=== PATIENT | female | born 1985 | race Caucasian/White ===

== ENCOUNTER 2020-08-09 22:59 | Emergency (ER) | payer MEDICAID, SELFPAY ==
[2020-08-09 23:00] VITALS: BP 137/102; PULSE 111; RESP 18; TEMP 36.3; O2SAT 100; BMI 23.1
--- NOTE | 2020-08-09 23:18 | ED.DCSUM_ITS ---
History of Present Illness <Elder Chau - Last Filed: 08/10/20 03:44> Informant: Patient Narrative: Patient is a 35-year-old female who presents to the emergency department for headache. This started 2 days ago. Has been progressively getting worse. Not worse at onset. She does have a history of migraines although this feels slightly different to her. She currently rates the pain as a 8 out of 10. She has been trying to take ibuprofen and Tylenol which have not been giving her significant relief. She has been feeling like she has had slightly blurred vision. Has been mildly nauseous. Has had some photophobia. Denies any head trauma. This is not the worst headache of her life. Denies any neck stiffness or fever/chills. No chest pain or shortness of breath. No weakness or loss of sensation in any extremity. She denies any chance of being . <Nathaniel Fisher - Last Filed: 08/10/20 12:38> Chief Complaint: Headache Past Medical History <Elder Chau - Last Filed: 08/10/20 03:44> Prior records reviewed: Yes Smoking Status: Current every day smoker <Nathaniel Fisher - Last Filed: 08/10/20 12:38> - Allergies and Home Meds Allergies/Adverse Reactions: Allergies metoclopramide [From Reglan] Allergy (Verified 08/09/20 23:05) NEEDS FOLLOW-UP C/O FEELING CRAZY paroxetine [From Paxil] Allergy (Verified 08/09/20 23:04) Hives Primary Care Physician: NOT,DEFINED [NON-STAFF] - 2 Days Review of Systems All systems negative except as indicated General: Denies: Chills, Fever, Sweats Eyes: Reports: Blurred Vision - bilaterally. Denies: Diplopia ENT: Denies: Rhinorrhea, Sore throat Cardiovascular: Denies: Chest pain, Palpitations Respiratory: Denies: Dyspnea, Cough, Dyspnea on exertion Gastrointestinal: Reports: Nausea. Denies: Abdominal pain, Vomiting Musculoskeletal: Denies: Back pain, Extremity Pain Skin: Denies: Rash, Wounds Neurological: Reports: Headache. Denies: Weakness, Numbness <Nathaniel Fisher - Last Filed: 08/10/20 12:38> Physical Exam Vital Signs/Narrative: Vital Signs Temp Pulse Resp BP Pulse Ox 08/10/20 02:04 89 16 136/92 H 99 08/10/20 00:37 92 16 121/86 H 100 08/09/20 23:00 97.3 F L 111 H 18 137/102 H 100 <Elder Chau - Last Filed: 08/10/20 03:44> Vital Signs/Narrative: Vital Signs Temp Pulse Resp BP Pulse Ox 08/09/20 23:00 97.3 F L 111 H 18 137/102 H 100 Inital Vital Signs reviewed: Yes General: Well nourished, Well developed, No Acute Distress Head: Normocephalic, Atraumatic Eyes: Perrl, EOMI ENT: Moist mucous membranes, No rhinorrhea Neck: Supple, Nontender Cardiovascular: Regular rate, Regular rhythm, No murmurs Respiratory: No distress, CTA bilaterally, Chest nontender Abdomen: Soft, Nontender, Nondistended, Normal bowel sounds Back: Nontender, Normal Inspection Extremities: Nontender, No edema Skin: Normal color, No rash Neurological: Alert, Oriented x3, Cranial nerves II-XII grossly intact, Normal Strength, Normal Sensation Psychological: Normal affect, Normal Mood <Nathaniel Fisher - Last Filed: 08/10/20 12:38> Diagnostic/Tx/Re-eval - Medical Decision Making Reevaluated this patient after Compazine was given and after less than half of the magnesium infusion has been administered. She says she is improved somewhat. She still has the headache, and is sleepy but easily arousable. She is neurologically intact. Will be discharged home after the medications unless her headache gets worse on reevaluation. <Elder Chau - Last Filed: 08/10/20 03:44> - Medical Decision Making Patient presents to the emergency department for headache. No red flag symptoms for subarachnoid hemorrhage. Upon arrival to the emerge department she does not appear in any acute distress. She is mildly hypertensive and mildly tachycardic upon arrival but on my physical exam heart rate was within normal limits. She h as no focal neurological deficits. Will treat with Toradol, Zofran and Benadryl as she does have adverse reaction to Reglan. Patient did not get good relief with the initial treatment so Compazine and magnesium are being added. Will sign out due to end of shift. We will plan on disposition home. Otherwise has been stable throughout ED stay. <Nathaniel Fisher - Last Filed: 08/10/20 12:38> ED Disposition <Elder Chau - Last Filed: 08/10/20 03:44> <Nathaniel Fisher - Last Filed: 08/10/20 12:38> - Plan for ED Patient: Disposition: Home or Assisted Living Diagnosis: Headache Instructions: ED Headache Unspecified Referrals: NOT,DEFINED [NON-STAFF] - 2 Days
[2020-08-09] MEDS: Ondansetron 4 MG/2 ML Vial IV (23:42)
[2020-08-09] MEDS: Ketorolac 30 MG/ML Syringe IV (23:42)
[2020-08-09] MEDS: DiphenhydrAMINE 50 MG/ML Syringe 25 MG IV (23:43)
[2020-08-10] MEDS: proCHLORPERazine 10 MG/2 ML Vial IV (00:30)
[2020-08-10 00:37] VITALS: BP 121/86; PULSE 92; RESP 16; O2SAT 100
[2020-08-10 02:04] VITALS: BP 136/92; PULSE 89; RESP 16; O2SAT 99
[2020-08-10 03:15] VITALS: BP 125/84; PULSE 84; RESP 17; O2SAT 100
== END 2020-08-10 03:16 | disposition home or self-care (01) ==
PROVIDERS: Emergency Provider Emergency Medicine
DX: R51 Headache (principal); F17.200 Nicotine dependence, unspecified, uncomplicated
CPT/HCPCS: 96365; 96366; 96375; 99283; J7040; A4216; J2405